=== PATIENT | male | born 1980 | race Caucasian/White ===

== ENCOUNTER 2021-03-06 23:51 | Emergency (ER) | payer OTHER ==
[2021-03-07] MEDS ORDERED: Sulfamethoxazole/Trimethoprim 800-160 MG Tab PO ONE (01:51)
[2021-03-07] MEDS ORDERED: Ketorolac 15 MG/ML SDV IM ONE (01:51)
[2021-03-07] MEDS ORDERED: Dexamethasone 10 MG/ML SDV IM SCH (02:00)
--- NOTE | 2021-03-07 02:03 | EDM.PDOC ---
ED HPI GENERAL MEDICAL PROBLEM - General Chief Complaint: Skin Complaint Stated Complaint: MIGRAINE, POSSIBLE SPIDER BITE Time Seen by Provider: 03/07/21 01:25 - History of Present Illness INITIAL COMMENTS - FREE TEXT/NARRATIVE: CHIEF COMPLAINT(S): Rash HISTORY OF PRESENT ILLNESS: This is a 40-year-old man with a past medical history of MRSA who comes to the emergency department with a chief complaint of rash. The patient states that for 1 week now he has been experiencing a rash on his right arm. He states that initially started out small but has since gotten bigger. He denies any purulent drainage, fever, chills but states that he does have some mild pain in the area. He currently rates his pain as 4-5 out of 10 which he describes as burning. There is no numbness, tingling, or weakness. He denies any injury to this area. He states that he has not yet taken anything for the pain. He denies any exacerbating or relieving factors. In addition to this he states that he would like some tablets for migraine. He cannot recall the name of the tablets and has been using his friend's tablets for his migraine. He states that he has a bifrontal headache not associated with any photophobia, phonophobia, numbness, tingling, weakness, trouble seeing, speaking or swallowing. He rates his pain as 5 out of 10 and throbbing. He denies any exacerbating or relieving factors. He has not yet tried any pain medication. REVIEW OF SYSTEMS: Constitutional: Denies fever, chills. Eyes: Denies eye pain Ears, Nose, Mouth, & Throat: Denies earache Cardiovascular: Denies chest pain Respiratory: Denies shortness of breath Gastrointestinal: Denies Nausea, vomiting, diarrhea, hematochezia. Genitourinary: Denies hematuria Skin: Positive for burning rash to right arm MSK: Denies joint pain Neurological: Positive for bifrontal headache. Denies blurred vision, numbness, tingling, weakness psychiatric: Denies depression PAST MEDICAL HISTORY: As per history of present illness and as reviewed below otherwise noncontributory. SURGICAL HISTORY: As per history of present illness and as reviewed below otherwise noncontributory. SOCIAL HISTORY: As per history of present illness and as reviewed below otherwise noncontributory. FAMILY HISTORY: As per history of present illness and as reviewed below otherwise noncontributory. EXAMINATION OF ORGAN SYSTEMS/BODY AREAS: Constitutional: Blood pressure is 173/101, heart rate 111, respiratory rate 18 with an oxygen saturation of 96% on room air. Temperature 36.6 General: Well-appearing man who is in no acute distress Psychiatric: Appropriate mood and affect. Eyes: No scleral icterus or conjunctival erythema pupils equal round reactive to light. Extraocular movements intact. No nystagmus noted. ENMT: Moist mucous membranes. No pharyngeal erythema Cardiovascular: Regular, rate, and rhythm. No gallops, murmurs, or rubs. Bilateral upper extremity pulses symmetric and intact. No peripheral edema. No JVD. Respiratory: Lungs clear to auscultation bilaterally. No wheezes, rales, or rhonchi. Gastrointestinal: Soft, non-tender, non-distended. Normoactive bowel sounds Genitourinary: No suprapubic tenderness Musculoskeletal: Normal range of motion. Skin: There is an erythematous ill-defined rash on the posterior aspect of the right arm with an area of induration without any fluctuance. No crepitus. Neurological: AOx4. CN grossly intact. Strength 5/5 in bilateral upper and lower extremity. Sensation is intact bilaterally in upper and lower extremity. Gait appears normal. Finger to nose, heel to lowe, rapid alternating movements intact. MEDICAL DECISION MAKING AND COURSE IN THE ED WITH INTERPRETATION/REVIEW OF DIAGNOSTIC STUDIES: This is a 40-year-old man with a past medical history of MRSA who comes to the emergency department with right arm infection concerning for cellulitis and a migraine headache. At this time we will provide the patient with Decadron and Toradol for his migraine headache. We will provide the patient with Bactrim for his cellulitis. I do not believe any further work- up is indicated. I do not know what tablets he is speaking of and he does not know what tablets he took at home. Therefore no tablet prescription will be provided to the patient. He is to take Tylenol and Motrin for pain relief and continue with the antibiotic course for his rash. He is to return for new or worsening symptoms. He was amenable discharge and had no further questions DISPOSITION: The patient was discharged home in stable condition. The patient will follow up with primary care physician in 3 to 5 days CONDITION: Fair PROCEDURES: None FINAL IMPRESSION(S)/DIAGNOSES: 1. Acute right arm cellulitis 2. Acute headache Tramaine C. Crissy, M.D. Right Arm Pain Score (Numeric/FACES): 5 - Related Data Allergies Allergy/AdvReac Type Severity Reaction Status Date / Time No Known Allergies Allergy Verified 03/07/21 01:12 Home Meds: Home Meds Acetaminophen [Tylenol Extra Strength] 1,000 mg PO Q6HR #56 tablet 03/07/21 [Rx] Ibuprofen 400 mg PO Q6HR #28 tablet 03/07/21 [Rx] Sulfamethoxazole/Trimethoprim [Bactrim Ds Tablet] 1 each PO BID #14 tablet 03/07/21 [Rx] Past Medical History - Past Health History Medical/Surgical History: Denies Medical/Surgical History - Infectious Disease History Infectious Disease History: Reports: Chicken Pox Social & Family History - Family History Family Medical History: No Pertinent Family History - Tobacco Use Tobacco Use Status *Q: Current Every Day Tobacco User Years of Tobacco use: 15 Packs/Tins Daily: 1 - Caffeine Use Caffeine Use: Reports: Coffee, Energy Drinks, Soda - Recreational Drug Use Recreational Drug Use: No ED ROS GENERAL - Review of Systems Review Of Systems: See Below ED EXAM, SKIN/RASH Exam: See Below Course - Vital Signs Last Recorded V/S: Last Vital Signs Temp 36.6 C 03/07/21 01:13 Pulse 111 H 03/07/21 01:13 Resp 18 03/07/21 01:13 BP 173/101 H 03/07/21 01:13 Pulse Ox 96 03/07/21 01:13 - Orders/Labs/Meds Meds: Medications Discontinued Medications Generic Name Dose Route Start Last Admin Trade Name Pedro PRN Reason Stop Dose Admin Dexamethasone 10 mg 03/07/21 02:00 03/07/21 02:15 Dexamethasone 10 Mg/Ml Sdv IM 10 mg ONETIME ELIF Administration Dexamethasone Confirm 03/07/21 02:08 Dexamethasone 10 Mg/Ml Sdv Administered 03/07/21 02:09 Dose 10 mg .ROUTE .STK-MED ONE Ketorolac Tromethamine 15 mg 03/07/21 01:51 03/07/21 02:15 Ketorolac 15 Mg/Ml Sdv IM 03/07/21 01:52 15 mg ONETIME ONE Administration Ketorolac Tromethamine Confirm 03/07/21 02:09 Ketorolac 15 Mg/Ml Sdv Administered 03/07/21 02:10 Dose 15 mg .ROUTE .STK-MED ONE Trimethoprim/Sulfamethoxazole 1 tab 03/07/21 01:51 03/07/21 02:14 Sulfamethoxazole/Trimethoprim 800-160 Mg Tab PO 03/07/21 01:52 1 tab ONETIME ONE Administration Trimethoprim/Sulfamethoxazole Confirm 03/07/21 02:08 Sulfamethoxazole/Trimethoprim 800-160 Mg Tab Administered 03/07/21 02:09 Dose 1 tab .ROUTE .STK-MED ONE Departure - Departure Time of Disposition: 02:01 Disposition: Home, Self-Care 01 Condition: Fair Clinical Impression: Cellulitis - Discharge Information *PRESCRIPTION DRUG MONITORING PROGRAM REVIEWED*: No *COPY OF PRESCRIPTION DRUG MONITORING REPORT IN PATIENT EDER: No Prescriptions: Sulfamethoxazole/Trimethoprim [Bactrim Ds Tablet] 1 each PO BID #14 tablet Ibuprofen 400 mg PO Q6HR #28 tablet Acetaminophen [Tylenol Extra Strength] 1,000 mg PO Q6HR #56 tablet Instructions: Cellulitis, Adult, Migraine Headache Referrals: PCP,None [Primary Care Provider] - Forms: ED Department Discharge Additional Instructions: You were evaluated today on an emergent basis. At this time it does appear that you have an infection of your right arm. I did start you on antibiotics here in the emergency department. As discussed if the rash worsens I would like you to return to the emergency department. Please take the antibiotics as prescribed. In addition for your migraine I would like you to take Tylenol and Motrin for pain relief and I like you to follow-up with neurology since you are going to be here in [place]. As discussed I do not know what tablets you are taking from your cousin however if there are tablets that are needed for your migraine I recommend you get them from a neurologist. Please return for any new or worsening symptoms. Please use: Tylenol 500-1000mg every 6 hours (DO NOT TAKE MORE THAN 4000mg in 1 day) Ibuprofen 400mg every 6 hours (Take with food as it can cause ulcers, GI upset) Example schedule: 8:00 AM (Tylenol 500-1000mg) 11:00 AM (Ibuprofen 400mg) 2:00 PM (Tylenol 500-1000mg) 5:00 PM (Ibuprofen 400mg) [facility] Professional Building [address] [place] [address], [address] [place] [address] The patient is informed of any results of their evaluation and diagnostic workup and all questions are answered. They are given discharge instructions and return precautions. The patient is stable for discharge. The patient states they understand and agree with the plan and that they will return if their symptoms get worse or if they have any new concerns. The following information is given to patients seen in the emergency department who are being discharged to home. This information is to outline your options for follow-up care. We provide all patients seen in our emergency department with a follow-up referral. The need for follow-up, as well as the timing and circumstances, are variable depending upon the specifics of your emergency department visit. If you don't have a primary care physician on staff, we will provide you with a referral. We always advise you to contact your personal physician following an emergency department visit to inform them of the circumstance of the visit and for follow-up with them and/or the need for any referrals to a consulting specialist. The emergency department will also refer you to a specialist when appropriate. This referral assures that you have the opportunity for follow-up care with a specialist. All of these measure are taken in an effort to provide you with optimal care, which includes your follow-up. Under all circumstances we always encourage you to contact your private physician who remains a resource for coordinating your care. When calling for follow-up care, please make the office aware that this follow-up is from your recent emergency room visit. If for any reason you are refused follow-up, please contact the [facility] Emergency Department at and asked to speak to the emergency department charge nurse.
[2021-03-07] MEDS ORDERED: Sulfamethoxazole/Trimethoprim 800-160 MG Tab ONE (02:08)
[2021-03-07] MEDS ORDERED: Dexamethasone 10 MG/ML SDV ONE (02:08)
[2021-03-07] MEDS ORDERED: Ketorolac 15 MG/ML SDV ONE (02:09)
== END 2021-03-07 02:18 | disposition home or self-care (01) ==
LOC: MW.ED 23:51
DX: L03.113 Cellulitis of right upper limb (principal); R51.9 Headache, unspecified; Z72.0 Tobacco use
CPT/HCPCS: 96372; 99283; A9270; J1100; J1885